=== PATIENT | female | born 1950 | race Caucasian/White ===

== ENCOUNTER 2020-08-17 09:15 | Inpatient (IN) | payer MEDICARE, BC, OTHER ==
[~2020-08-17] VITALS: Ht 157.5 cm; Wt 76.6 kg
[~2020-08-17 09:15] MED LIST: ACYC400 PO; CALCIT950 PO; CLOP75 PO; ESOM20 PO; FOLI1 PO; HYDACE5 PO; HYDCHL12.5 PO; LISI20 PO; METTREX2.5 PO; TIMDOROPSO BOTHEYES; TRAV.004OP BOTHEYES
[2020-08-17] MEDS ORDERED: DEXILANT60 MG PO (09:37)
[2020-08-17] MEDS ORDERED: ROSU10TA PO (09:38)
[2020-08-17] MEDS ORDERED: HYDSUL200 PO (09:39)
[2020-08-17] MEDS ORDERED: ERGO400 PO (09:41)
--- NOTE | 2020-08-17 11:00 | NUR ---
PT ARRIVES BACK TO RECOVERY ROOM WITH R RADIAL TR BAND IN PLACE. 11 CC OF AIR IN BAND. NO BLEEDING OR HEMATOMA NOTED. FULL REPORT TAKEN FROM RASHEEDA CASTRO RN. UPON ASSESSING PATIENT, PT STS, "MY LEFT HAND IS FEELING REALLY DIFFERENT NOW. IT WON'T STAY STILL. AND IT'S KATHARINE NUMB" NEURO ASSESSMENT OBTAINED. LEFT SIDED FACIAL DROOP NOTED. PT REPORTS NUMBNESS NOW ON LEFT SIDE OF FACE AND LIPS. LEFT SIDE WEAKNESS NOTED TO L HAND- UPPER [employer] WORKER UNEQUAL. DR ODOM NOTIFIED. NEW ORDERS IN PLACE. CT OF HEAD ORDERED.
--- NOTE | 2020-08-17 11:06 | NUR ---
JUST PRIOR TO RIGHT RADIAL SHEATH REMOVAL AND TR BAND PLACEMENT PT BECAME DIAPHORETIC AND UNRESPONSIVE. DR ODOM WAS ALERTED AND IMMEDIATELY ARRIVED IN BOARDER HAND. VS WERE STABLE AND PT'S BLOOD SUGAR WAS TESTED WITH A RESULT OF 116. AFTER SEVERAL MINUTES, PT BECAME RESPONSIVE COMPLAINING OF NAUSEA. 4 MG OF ZOFRAN WAS ADMINISTERED. TR BAND WAS PLACED AND PT WAS TRANSFERED TO RECOVERY ROOM. PT STATED SHE WAS FEELING MUCH BETTER, BUT MENTIONED HER LEFT LIP WAS "NUMB" AND HER LEFT HAND WAS MOVING INDEPENDENTLY. PUPILS WERE EQUAL, TONGUE THRUST MIDLINE, SLIGHT LEFT MOUTH DROOP NOTED. FULL REPORT WAS PROVIDED STEPHANIE BENAVIDEZ AND STEPHANIE IBRAHIM TO ASSUME CARE OF PT IN RECOVERY ROOM.
--- NOTE | 2020-08-17 11:23 | NUR ---
PT REPORTS LEFT SIDED NUMBNESS ON LIPS/CHEEK "IS FEELING BETTER" VSS. NADN.
--- NOTE | 2020-08-17 11:26 | NUR ---
PT TO IMAGING WITH CARDIAC MONITORING IN PLACE. VSS
--- NOTE | 2020-08-17 11:39 | NUR ---
PT BACK FROM IMAGING. CT OF HEAD COMPLETED. VSS. NADN. PT RESTING COMFORTABLY. R RADIAL TR BAND REMAINS CLEAR. PT DENIES CP. CALL LIGHT WITHIN REACH.
--- NOTE | 2020-08-17 12:45 | NUR ---
PT AMBULATES WITH MINIMAL ASSISTANCE TO RESTROOM AND BACK. R RADIAL TR BAND REMAINS CLEAR/ STABLE. NO BLEEDING OR HEMATOMA NOTED. VSS.
--- NOTE | 2020-08-17 13:25 | NUR ---
DR ODOM SPOKE WITH PATIENT DAUGHTER REGARDING PLAN OF CARE. PT PENDING TRANSFER TO [facility] FOR MULTIVESSEL DISEASE. AWAITING ROOM ASSIGNMENT.
--- NOTE | 2020-08-17 14:51 | NUR ---
TR BAND PREVIOUSLY DEFLATED AT 1430 SITE REMAINS SOFT NON TENDER WITH NO ACTIVE BLEEDING, OOZING, OR PAIN. PT UP TO RESTROOM WITH SLOW STEADY GAIT. UNMEASURED VOID. WILL CONTINUE TO MONITOR RIGHT TR BAND SITE. NO NEEDS AT THIS TIME PER PT.
--- NOTE | 2020-08-17 15:52 | NUR ---
PT EATING WELL. NADN. PT LEFT SIDED FACIAL DROOP APPREARS TO RESOLVED. PT INNER TUBE CUTTER EQUAL. NUMBNESS HAS RESOLVED WELL. PT DENIES PAIN OR NEEDS. CONTINOUS MONITORING IN PLACE. R RADIAL REMAINS STABLE. VSS. CALL LIGHT WITHIN REACH.
--- NOTE | 2020-08-17 16:27 | NUR ---
REPORT GIVEN TO ROSEANNE STEELE RN TO ASSUME CARE. PT RESTING COMFORTABLY. VSS. R RADIAL STABLE. PT ASSISTED TO AND FROM RESTROOM WITH MINMAL ASSISTANCE. CALL LIGHT WITHIN REACH.
--- NOTE | 2020-08-17 17:32 | NUR ---
ASSUMED CARE FROM [facility] POST ANGIO. PENDING [place]RA TRANSFER FOR BYPASS. RIGHT ARM BOARD IN PLACE, RIGHT WRIST ANGIO SITE DRESSING CLEAN AND INTACT. TR BAND REMOVED BY [facility] AT APPROX 1345. RADIAL PULSE PALBABLE, CAP REFILL <3, MOVES FINGERS WITHOUT DIFFICULTY, DENIES NUMBNESS. A/A/OX4, VSS, WILL CONTINUE TO MONITOR UNTIL SUPERVISOR EXTRUDING DEPARTMENT AND TRANSFER.
--- NOTE | 2020-08-18 04:51 | NUR ---
[employer] SALES REPRESENTATIVE SUMMARY PT HAS HAD NO C/P OR SOB THIS SHIFT. PT HAS SLEPT FOR MOST OF THE SHIFT COMFORTABLY WITH CALL LIGHT WITHIN REACH. O2 SATS >92 ON RM AIR. VSS. PT IS AXO X4, USES CALL LIGHT FOR BATHROOM ASSISTANCE. HEPARIN RUNNING W NO S/S OF BLEEDING. WILL REPORT TO DAYSLORNE RN, WCTM.
--- NOTE | 2020-08-18 18:42 | NUR ---
SHIFT SUMMARY: PT ALERT AND ORIENTED X4. ON ROOM AIR SATING ABOVE 92%. VITAL SIGNS STABLE. NO ACUTE CHANGES THIS SHIFT. TELE SHOWING SINUS RHYTHM. DENIES CHEST PAIN/PRESSURE. SLEEPING THROUGHOUT THE DAY. IN GOOD SPIRITS. RIGHT RADIAL SIGHT. NONTENDER, SOFT AND DRESSING C/D/I. ARM BOARD IN PLACE THROUGHOUT THE SHIFT. POST OP EDUCATION REINFORCED. HEPARIN INFUSING. CALL LIGHT REMAINED IN REACH. BED IN LOW LOCKED POSITION.
--- NOTE | 2020-08-18 21:56 | NUR ---
CARE ASSUMPTION PT IS AT EASE LYING IN BED W HEPARIN RUNNING PER ORDER. HEPARIN ORDER VERIFIED W DAYSHIFT STEPHANIE HATFIELD. PT DENIES ANY PAIN OR NAUSEA. WCTM.
--- NOTE | 2020-08-19 04:38 | NUR ---
AEROSPACE TECHNICIAN SUMMARY PT HAS HAD NO C/P OR SOB THIS SHIFT. SPLINT IS STILL IN PLACE ON HER RIGHT WRIST WITH NO S/S OF BLEEDING. VSS ARE STABLE BUT PT HAS BEEN SINUS MICHAEL INTO THE 40'S AT TIMES THROUGHOUT THE SHIFT. NO NEW S/S. WILL REPORT TO ONCOMING BRITNI BROWN.
--- NOTE | 2020-08-19 08:38 | NUR ---
assisted with IV pole to walk to the bathroom. States she needs to have a BM.
--- NOTE | 2020-08-19 11:09 | NUR ---
Notified of bed assignment for pt at [facility]. Attempted to call telephone report [phone]; Nurse is unavailable at this time and will call me back for report.
--- NOTE | 2020-08-19 12:52 | NUR ---
[id number] Telephone report was given to ELEMENTARY CLASSROOM TEACHER at [facility].
[2020-08-19 13:07] LABS: Mean Platelet Volume 10.7 fL (9.1-12.4); Platelet Count 203 K/mm3 (150-400)
== END 2020-08-19 13:48 | disposition short-term general hospital (02) | DRG 287 ==
LOC: MHTC 09:15 → PCU 16:57 → MHTC 08-19 13:48 → PCU 08-19 13:48
PROVIDERS: Pharmacist; ADMIT Internal Medicine Cardiovascular Disease
PROC: 4A023N7 Measurement of Cardiac Sampling and Pressure, Left Heart, Percutaneous Approach (ICD-10-PCS; principal; 2020-08-17)
PROC: B2111ZZ Fluoroscopy of Multiple Coronary Arteries using Low Osmolar Contrast (ICD-10-PCS; 2020-08-17)
DX: I25.10 Atherosclerotic heart disease of native coronary artery without angina pectoris (principal); H34.9 Unspecified retinal vascular occlusion; Z68.41 Body mass index [BMI] 40.0-44.9, adult; I35.1 Nonrheumatic aortic (valve) insufficiency; I10 Essential (primary) hypertension; E78.5 Hyperlipidemia, unspecified; M06.9 Rheumatoid arthritis, unspecified; E66.9 Obesity, unspecified; Z87.891 Personal history of nicotine dependence; Z88.8 Allergy status to other drugs, medicaments and biological substances; Z79.02 Long term (current) use of antithrombotics/antiplatelets; Z79.899 Other long term (current) drug therapy; Z86.73 Personal history of transient ischemic attack (TIA), and cerebral infarction without residual deficits
CPT/HCPCS: 36415; 70450; 76937; 80048; 82947; 85027; 85049; 85347; 85610; 85730; 93454; 99152; 99153; A9270; C1769; C1894; J0461; J1644; J2250; J2405; J3010; J7030; J7050; Q9967

== ENCOUNTER 2024-01-09 09:03 | Emergency (ER) | payer MEDICARE, BC, OTHER ==
[~2024-01-09] VITALS: Ht 157.5 cm; Wt 72.6 kg
[~2024-01-09 09:03] MED LIST changes: +DEXILANT60 MG PO; +ERGO400 PO; +HYDSUL200 PO; +ROSU10TA PO
[2024-01-09 09:36] LABS: BASOPHILS ABSOLUTE AUTO 0.05 K/mm3 (0.00-0.23); BASOPHILS PERCENT AUTO 1 % (0-2); EOSINOPHILS ABSOLUTE AUTO 0.11 K/mm3 (0.00-0.68); EOSINOPHILS PERCENT AUTO 2 % (0-6); Hemoglobin 11.4 g/dL (11.5-16.0); IMMATURE GRAN ABSOLUTE AUTO 0.01 K/mm3 (0.00-0.10); IMMATURE GRAN PERCENT AUTO 0 % (0-1); LYMPHOCYTES ABSOLUTE AUTO 1.27 K/mm3 (0.84-5.20); LYMPHOCYTES PERCENT AUTO 22 % (21-46); MONOCYTES ABSOLUTE AUTO 0.56 K/mm3 (0.16-1.47); MONOCYTES PERCENT AUTO 10 % (4-13); Mean Corpuscular HGB 32.7 pg (26.0-34.0); Mean Corpuscular HGB Conc 33.5 g/dL (31.5-36.5); Mean Corpuscular Volume 97 fL (80-100); Mean Platelet Volume 10.3 fL (9.1-12.4); NEUTROPHILS ABSOLUTE AUTO 3.85 K/mm3 (1.96-9.15); NEUTROPHILS PERCENT AUTO 66 % (41-73); Platelet Count 200 K/mm3 (150-400); RDW Coefficient Variation 13.7 % (11.7-14.2); RDW Standard Deviation 48.6 fL (35.1-46.3); Red Blood Cell Count 3.49 M/mm3 (3.80-5.20); White Blood Cell Count 5.85 K/mm3 (4.00-11.30)
[2024-01-09 09:51] LABS: International Normalized Ratio 0.96; Prothrombin Time Results 10.3 Sec (9.7-11.5)
[2024-01-09 09:55] LABS: Albumin/Globulin Ratio 1.2 (0.8-1.8); Bilirubin, Total 0.7 mg/dL (0.1-1.0); Bun/Creatinine Ratio 18.7 (12.0-20.0); Calcium, Blood 9.4 mg/dL (8.5-10.1); Creatinine, Blood 0.8 mg/dL (0.40-1.00); Globulin, Blood 3.2 g/dL (2.2-4.0); Potassium, Blood 4.1 mmol/L (3.5-5.5); Total Protein, Blood 7.2 g/dL (6.4-8.2)
[2024-01-09 10:00] VITALS: BP 164/47
== END 2024-01-09 13:00 | disposition home or self-care (01) ==
LOC: ER 09:03
PROVIDERS: Physician Assistant
DX: R07.9 Chest pain, unspecified (principal); E04.9 Nontoxic goiter, unspecified; Z87.891 Personal history of nicotine dependence; Z79.899 Other long term (current) drug therapy; Z88.6 Allergy status to analgesic agent
CPT/HCPCS: 70498; 71045; 71275; 80053; 83690; 84484; 85025; 85610; 85730; 86850; 86900; 86901; 99283; Q9967